=== PATIENT | female | born 1955 | race Caucasian/White ===

== ENCOUNTER 2016-06-24 08:41 | Emergency (ER) | payer OTHER ==
[2016-06-24 09:34] LABS: Hematocrit 43 % (35-47); Mean Corpuscular HGB Conc 33 g/dl (31-36); Mean Corpuscular Hemoglobin 33 pg (27-31); Mean Corpuscular Volume 102 fL (80-97); Mean Platelet Volume 9 um3 (7.4-10.4); Red Blood Count 4.23 10^6/ul (4.0-5.4); Red Cell Distribution Width 15 % (10.5-15); White Blood Count 6.1 10^3/ul (3.5-10.8)
[2016-06-24 09:36] LABS: Add Diff/Slide Review? Slide Review Added; Comments Flag Yes
[2016-06-24 09:53] LABS: Albumin 3.7 g/dL (3.2-5.2); BUN/Creatinine Ratio 16.3 (8-20); Calcium 9.5 mg/dL (8.6-10.3); EGFR African American 93.8 (>60); EGFR Non-African American 72.9 (>60); Globulin 3.9 g/dL (2-4); Potassium 3.9 mmol/L (3.5-5.0); Total Bilirubin 0.4 mg/dL (0.2-1.0); Total Protein 7.6 g/dL (6.4-8.9)
--- NOTE | 2016-06-24 09:59 | RAD ---
INDICATION: LEFT side chest pain radiating to the back. COPD exacerbation. COMPARISON: June 26, [address] and July 26, 2007 chest radiograph TECHNIQUE: Dual energy PA and routine lateral views of the chest were obtained. REPORT: Elevated lung volumes and both diffuse mild prominence of the interstitial markings and patchy rarefaction of the mid to upper lung zone interstitial markings. No focal pulmonary lesion, compelling alveolar consolidation, pleural effusion, pneumothorax. The heart, pulmonary vasculature, and mediastinal contours are unremarkable. Mild S-shaped curve of the thoracic spine convex to the LEFT superiorly and to the RIGHT in the mid to distal segment. No suspicious osseous lesions or acute fractures evident. Healed fractures of the LEFT eighth and ninth ribs noted posterolaterally. IMPRESSION: Stigmata of obstructive lung disease. No acute pulmonary or cardiac process evident.
[2016-06-24 10:15] LABS: TSH (Thyroid Stimulating Horm) 2.04 mcIU/mL (0.34-5.60)
[2016-06-24 10:23] LABS: Eosinophils % 4 % (0-6); Immature Granulocytes 2 % (0-9); Neutrophil % 14 % (38-83); Reactive Lymph % 7 % (0-6)
[2016-06-24 10:25] LABS: RBC Morphology Normal (Normal)
[2016-06-24 10:27] LABS: Add Path Review? YES
[2016-06-24 11:25] LABS: T4 5.04 mcg/mL (6.09-12.23)
[2016-06-24 13:03] VITALS: BP 127/87
--- NOTE | 2016-06-24 20:57 | ED ---
Samir Neri Billy, scribed for Jerardo Trujillo MD on 06/24/16 at 0910 . HPI Chest Pain - HPI Summary HPI Summary: Patient is a 60 year-old female coming to [facility] for evaluation of left-sided chest pressure since 06 this morning. The pain radiates to her left shoulder and back. She was already awake at the time of onset, watching the news on TV. Positive nausea without vomiting. Denies sweating. Pain improved with NTG by EMS , but it was 8/10 in severity at onset. - History of Current Complaint Chief Complaint: EDChestPainROMI Time Seen by Provider: 06/24/16 08:59 Hx Obtained From: Patient Onset/Duration: Started Hours Ago Time of Onset: 06:30 Timing: Constant Initial Severity: Moderate Current Severity: Moderate Chest Pain Location: Left Anterior Chest Pain Radiates: Yes Chest Pain Radiates To:: Back, Shoulder Character: Pressure/Squeezing Aggravating Factor(s): Nothing Alleviating Factor(s): NTG 123 Associated Signs and Symptoms: Positive: Chest Pain, Nausea. Negative: Diaphoresis, Vomiting - Allergy/Home Medications Allergies/Adverse Reactions: Allergies Allergy/AdvReac Type Severity Reaction Status Date / Time No Known Allergies Allergy Verified 03/19/14 14:01 PMH/Surg Hx/FS Hx/Imm Hx Cardiovascular History: Reports: Hx Hypertension Psychiatric History: Reports: Hx Substance Abuse Denies: Hx Eating Disorder, Hx of Violent Episodes Against Others Infectious Disease History: No Infectious Disease History: Denies: Traveled Outside the [place] in Last 30 Days - Family History Family History: Significant for alcoholism and breast cancer. - Social History Alcohol Use: Daily Substance Use Type: Reports: Marijuana Smoking Status (MU): Current Every Day Smoker Review of Systems Negative: Skin Diaphoresis Positive: Chest Pain Positive: Nausea. Negative: Vomiting All Other Systems Reviewed And Are Negative: Yes Physical Exam - Summary Physical Exam Summary: VITAL SIGNS: Reviewed. GENERAL: Patient is a well developed and nourished female who is lying comfortable in the stretcher. Patient is not in any acute respiratory distress. HEAD AND FACE: No signs of trauma. No ecchymosis, hematomas or skull depressions. No sinus tenderness. EYES: PERRLA, EOMI x 2, No injected conjunctiva, no nystagmus. EARS: Hearing grossly intact. Ear canals and tympanic membranes are within normal limits. MOUTH: Oropharynx within normal limits. NECK: Supple, trachea is midline, no adenopathy, no JVD, no carotid bruit, no c- spine tenderness, neck with full ROM. CHEST: Symmetric, no tenderness at palpation LUNGS: Clear to auscultation bilaterally. No wheezing or crackles. CVS: Regular rate and rhythm, S1 and S2 present, no murmurs or gallops appreciated. ABDOMEN: Soft, non-tender. No signs of distention. No rebound no guarding, and no masses palpated. Bowel sounds are normal. EXTREMITIES: FROM in all major joints, no edema, no cyanosis or clubbing. NEURO: Alert and oriented x 3. No acute neurological deficits. Speech is normal and follows commands. SKIN: Dry and warm Triage Information Reviewed: Yes Vital Signs On Initial Exam: Initial Vitals Temp Pulse Resp BP Pulse Ox 97.3 F 81 22 125/76 89 06/24/16 08:43 06/24/16 08:43 06/24/16 08:43 06/24/16 08:43 06/24/16 08:43 Vital Signs Reviewed: Yes - [place] Coma Scale Coma Scale Total: 15 Diagnostics - Vital Signs Vital Signs Temp Pulse Resp BP Pulse Ox 06/24/16 08:54 73 12 93 06/24/16 08:53 122/70 06/24/16 08:43 97.3 F 81 22 125/76 89 - Laboratory Result Diagrams: 06/24/16 09:11 06/24/16 09:11 Lab Statement: Any lab studies that have been ordered have been reviewed, and results considered in the medical decision making process. - Radiology CXR Radiology Interpretation Completed By: Radiologist - Stigmata of obstructive lung disease. No acute pulmonary or cardiac process evident. - EKG 0841 EKG Interpretation: NSR 77 bpm, no STEMI Chest Pain Course/Dx - Course Assessment/Plan: Patient is a 60 year-old female coming to [facility] for evaluation of left-sided chest pressure since 06 this morning. The pain radiates to her left shoulder and back. She was already awake at the time of onset, watching the news on TV. Positive nausea without vomiting. Denies sweating. Pain improved with NTG by EMS, but it was 8/10 in severity at onset. Test results WNL except for sodium of 130, glucose 102, AST 153, and serum alcohol of 120. CXR shows no acute pathology. EKG shows NSR without ST elevations, which is unchanged from previous EKG done on 06/26/12. Troponin #1 is 0.00, troponin #2 is 0.00. She continues to be asymptomatic in the ED without CP, SOB, N/V. Therefore I have low suspicion for ACS and since the patient is not tachycardic or hypoxic, there is low suspicion for PE. Therefore she will be discharged home to follow up with PCP. The patient was recommended to return to the ED if she developed CP, SOB, dizziness, or feeling like she is going to pass out. She understands and agrees. The patient is hemodynamically stable, A&Ox3. I discussed all the findings and test results with the patient. Patient was instructed to return to the emergency room immediately if any of the symptoms return or worsens. Plan of care was discussed with the patient and understands and agrees. All questions were answered at patient satisfaction. There were no further complaints or concerns. Lung exam before discharge: CTA B/L. Good air exchange. No wheezing or crackles heard. CVS: S1 and S2 present. No murmurs appreciated. Patient is alert and oriented x 3. Patient is hemodynamically stable. Patient will be discharged home with follow up PCP in the next 2-3 days - Chest Pain Differential Diagnosis/HQI/PQRI: Acute [place], ACS, Angina, CHF, Chest Wall, GI Disease, Lower Respiratory Infection, Pulmonary Edema - Diagnoses Provider Diagnoses: Chest pain Discharge - Discharge Plan Condition: Stable Disposition: HOME Patient Education Materials: Chest Pain (ED) Referrals: Brett Rodriguez MD [Primary Care Provider] - The documentation as recorded by the Samir lai Billy accurately reflects the service I personally performed and the decisions made by me, Jerardo Trujillo MD.
== END 2016-06-24 13:03 | disposition home or self-care (01) ==
LOC: ED 08:41
DX: R07.9 Chest pain, unspecified (principal); F17.200 Nicotine dependence, unspecified, uncomplicated; I10 Essential (primary) hypertension
CPT/HCPCS: 36415; 71020; 80053; 80320; 82550; 82553; 83605; 83735; 83880; 84436; 84443; 84484; 85025; 85060; 85610; 93005; 99283; G0480